=== PATIENT | female | born 1995 | race Caucasian/White ===

== ENCOUNTER 2019-01-15 22:50 | Emergency (ER) | payer SELFPAY ==
[~2019-01-15] VITALS: Ht 165.1 cm; Wt 95.0 kg
[2019-01-16] MEDS ORDERED: KETOROLAC 60MG/2ML VIAL IM ONE (00:30)
[2019-01-16 03:00] VITALS: BP 116/73
== END 2019-01-16 03:20 | disposition home or self-care (01) ==
LOC: ER 22:50
DX: M25.522 Pain in left elbow (principal); M54.2 Cervicalgia; M25.512 Pain in left shoulder; G43.909 Migraine, unspecified, not intractable, without status migrainosus; V49.9XXA Car occupant (driver) (passenger) injured in unspecified traffic accident, initial encounter; Y93.89 Activity, other specified; Y92.89 Other specified places as the place of occurrence of the external cause; Y99.8 Other external cause status
CPT/HCPCS: 70450; 71045; 72125; 73080; 93005; 96372; 99284; J1885; Z7610; 99283; L0172